=== PATIENT | male | born 1955 | race Caucasian/White ===

== ENCOUNTER → 2016-05-28 | Outpatient (CLI) | payer MEDICARE ==
[~2016-05-28] MED LIST: COREG6.25 MG PO; KEFLEX500 MG PO; LEVEMIR FL100 UNIT/1 SUBCUT; LIPITOR10 MG PO; PRINIVIL5 MG PO; VITAMIN D3400 UNI1 PO
== END | disposition short-term general hospital (02) ==
LOC: CLCARD 10:48
DX: I50.20 Unspecified systolic (congestive) heart failure (principal); I34.0 Nonrheumatic mitral (valve) insufficiency; I42.8 Other cardiomyopathies; J44.9 Chronic obstructive pulmonary disease, unspecified; E11.9 Type 2 diabetes mellitus without complications; R42 Dizziness and giddiness; Z79.899 Other long term (current) drug therapy; Z85.72 Personal history of non-Hodgkin lymphomas